=== PATIENT | male | born 1955 | race Caucasian/White ===

== ENCOUNTER → 2018-01-02 14:05 | Outpatient (CLI) | payer BC, SELFPAY ==
[2018-01-02 16:29] LABS: Anion Gap 8 (5-15); BUN 12 mg/dL (7-18); BUN/Creat Ratio 8.7 RATIO (10-20); Calcium,Total 8.9 mg/dL (8.5-10.1); Chloride 104 mmol/L (98-107); Creatinine, Serum 1.38 mg/dL (0.70-1.30); EST Glomerular Filtration Rate 55 mL/min (>60); Est Glom Filt Rate - Afr Amer 67 mL/min (>60); Glucose 90 mg/dL (74-106); Potassium 4.1 mmol/L (3.5-5.1); Sodium Level 140 mmol/L (136-145)
== END ==
PROVIDERS: Family Provider Family Medicine; PCP Family Medicine; Visit Provider Family Medicine
DX: E87.6 Hypokalemia (principal)
CPT/HCPCS: 36415; 80048

== ENCOUNTER 2018-02-27 10:00 | Outpatient (RCR) | payer BC, SELFPAY ==
--- NOTE | 2018-02-01 11:02 | HP.PTEVAL ---
Patient's Visit Information MONSE WILSON is a 62 year old M referred to Physical Therapy by Maribell Brown NP.KOPSIT with a diagnosis of lumbar microdiscectomy left L5-S1. Date of Evaluation: 02/01/18 Physical Therapist: Mellisa Hall - Visit Plan Frequency: 2x /Week Duration: 4 Weeks Plan: Begin Lumbar Isometrics- do not perform ROM exercises- wean from lumbar brace as tolerated. Postural correction/body mechanics. LE ROM/stretching/strengthening- HEP. Balance left>right - Subjective Subjective: Has had back pain for years- had a lumbar microdiscectomy by Dr. Justen Morrow 01/16/18- went home after surgery. Fully I with all Adl's. wants to get back to being able to do all the things he was able to do prior to back pain. Had a back brace but has started to wean himself out- only really wearing when up and moving but did not wear it today. Saw 01/26- they were happy with progress. Patient reports still having some low back pain and left radiating symptoms to the foot. Better since surgery- feels like hes healing. Is driving. Worst: 01/21 Agg: anything to long- mostly standing or sitting to long. Eases: ice, heat feels better but doesn't do often. Best: 11/23. Sleep: does wake him up from time to time- side sleeper (both sides). Does sleep with a pillow between knees. Tingling in the outside of the left foot. No loss or change in bowel or bladder. Work: retired. PMhx: right shoulder RTC (2007) Meds: theraflex (Coumadin). Leaves March 02 for a trip to [facility]. - Objective Posture: FH, RS, Increased kyphosis- no brace worn today. Gait: no deviation noted. ROM: not tested secondary to restrictions. Incision: healing well- no s/s of infection. Sensation/Reflexes: intact. Strength: Right: Ankle: 5/5, Knee: 4+/5, Hip: 4+/5 Core: fair minus left: ankle: 4/5, Knee: 4/5, hip: 4/5. Flex: HS: left- severe, Gastroc: moderate. Balance: SLS: left-3 seconds right: 20 seconds. HR/TR: WNL - Goals Goal 1:: Patient will be I with HEP and progression Goal Time Frame: 4-6 Weeks Goal 2:: Patient will maintain proper posture t/o tx session to demo increased core s/s. Goal Time Frame: 4-6 Weeks Goal 3:: Patient will demo 4+/5 strength in left Le Goal Time Frame: 4-6 Weeks - Rehabilitation Potential Physical Therapy Diagnosis: Patient presents with hypomobility- he has decreased strength and muscular endurance s/p lumbar microdiscectomy Rehabilitation Potential: Good - Anticipated Interventions Patient/Client Instruction: Educate patient on: Benefits of Fitness Program For the Purpose of:: To increase tolerance to activity/condition/position Therapeutic Exercise to Include: Strength training, Endurance training, Agility training, Body mechanics, Postural training, Flexibilty training, Gait and locomotor training, Dynamic Lumbar Stabilization For the Purpose of:: To improve muscle performance and motor function TENS: Yes Cryotherapy (ice pack, ice massage): Yes Thermo therapy (hot pack): Yes For the Purpose of:: To decrease pain Thank you for the opportunity to evaluate your patient. For Medicare and Medicare HMO plans, please review the plan of care and approve it. It will need to be FAXED BACK to us at [phone] for Medicare purposes. Please let me know if there are questions or concerns regarding this plan of care. Physician Signature: Date:
--- NOTE | 2018-02-27 10:33 | HP.PTREVAL ---
Maribell Brown, , It has been my pleasure to treat MONSE WILSON over the last 8 visits for lumbar microdiscectomy left L5-S1. Please see the progress note below for an update on the physical therapy plan of care! Subjective: Patient reports that he is still feeling pretty good- usually he is okay but sometimes has a twinge but does not last to long. Can reposition and it feels okay. Has been doing exercises and walking about a mile loop 3-4 times. Leaves - feels his back is feeling ready to go. The leg pain is almost all resolved but does feel the left is a little weeker than the right. He feels that he is 99% of his expection level. Objective/Function: Posture: good throughout. Gait: no deviation noted. ROM: WFL within limitations. Strength:right: 5/5, Left: Ankle/knee: 5/5. Hip: 4+/5 throughout Core: fair plus Plan Plan: Hlld 4 weeks- patient to go to [employer] on a [employer] for 4 weeks- will wear brace and continue HEP Goals Goal 1:: Patient will be I with HEP and progression Goal Time Frame: 4-6 Weeks Goal Progress: Goal Met Goal 2:: Patient will maintain proper posture t/o tx session to demo increased core s/s. Goal Time Frame: 4-6 Weeks Goal Progress: Goal Met Goal 3:: Patient will demo 4+/5 strength in left Le Goal Time Frame: 4-6 Weeks Goal Progress: Goal Met Anticipated Interventions Patient/Client Instruction: Educate patient on: Benefits of Fitness Program For the Purpose of:: To increase tolerance to activity/condition/position Therapeutic Exercise to Include: Strength training, Endurance training, Agility training, Body mechanics, Postural training, Flexibilty training, Gait and locomotor training, Dynamic Lumbar Stabilization For the Purpose of:: To improve muscle performance and motor function TENS: Yes Cryotherapy (ice pack, ice massage): Yes Thermo therapy (hot pack): Yes For the Purpose of:: To decrease pain Please do not hesitate to contact me at [phone] by phone or if you have questions or concerns regarding this new plan of care! Sincerely, Mellisa Hall
--- NOTE | 2018-05-03 08:51 | HP.PT.NRP ---
HP - Discharge Summary (1) - Patient Information MONSE WILSON was seen in my office for initial evaluation on 02/01/18. The following Plan of Care was established for this patient: Initial Frequency: 2x /Week Initial Duration: 4 Weeks - Anticipated Interventions Patient/Client Instruction: Educate patient on: Benefits of Fitness Program For the Purpose of:: To increase tolerance to activity/condition/position Therapeutic Exercise to Include: Strength training, Endurance training, Agility training, Body mechanics, Postural training, Flexibilty training, Gait and locomotor training, Dynamic Lumbar Stabilization For the Purpose of:: To improve muscle performance and motor function TENS: Yes Cryotherapy (ice pack, ice massage): Yes Thermo therapy (hot pack): Yes For the Purpose of:: To decrease pain This patient was last seen in our office . Pertinent comments regarding their Physical therapy will appear below: Patient has not attended physical therapy in over 30 days and is appropriate for d/c- return to MD as needed. At this point I will be discontinuing this patient from physical therapy. I would be happy to see this patient again in the future if found appropriate by the physician. Thank you! Mellisa Hall
== END 2018-02-27 19:00 | disposition home or self-care (01) ==
LOC: PT 10:00
PROVIDERS: Family Provider Family Medicine; PCP Family Medicine; Visit Provider Nurse Practitioner Acute Care
DX: M51.16 Intervertebral disc disorders with radiculopathy, lumbar region (principal)
CPT/HCPCS: 97110; 97162; 97530

== ENCOUNTER → 2020-11-04 17:49 | Outpatient (CLI) | payer MEDICARE, SELFPAY ==
[2020-10-21 15:01] VITALS: BMI 26.6
[2020-11-03 15:26] LABS: Creatinine, Serum 1.12 mg/dL (0.70-1.30); EST Glomerular Filtration Rate 70 mL/min (>60); Est Glom Filt Rate - Afr Amer 84 mL/min (>60)
--- NOTE | 2020-11-04 18:15 | MRI_ITS ---
STUDY: MRI BRAIN WITH AND WITHOUT CONTRAST REASON FOR EXAM: Male, 65 years old. Post concussion H/A X 11 weeks TECHNIQUE: Standardized multiplanar fat and water weighted pulse sequences were obtained. 15ml Dotarem via IV was administered for the contrast portion of the examination. COMPARISON: None. FINDINGS: Normal size of the ventricles and extra-axial spaces for the patient''s age. There are a limited number of small white matter hyperintensities, distributed throughout the deep white matter tracts of the cerebral hemispheres, consistent with mild chronic white matter ischemic changes. Normal bilateral basal ganglia. Normal thalami. There is no extra-axial fluid accumulation. Normal flow voids within the major intracranial circulation suggesting patency by spin echo criteria. Normal venous enhancement. There is no enhancing intra-axial or extra-axial abnormality. Normal sella turcica, pituitary gland, infundibular stalk, optic chiasm and hypothalamus. Normal tectal plate and pineal gland. Normal midbrain, cathy and medulla. Normal cerebellum. Normal basal cisterns. Normal bilateral temporal bones. Normal bilateral internal auditory canals. No demonstrated orbital abnormality, within the constraints of a routine brain study. Normal visualized paranasal sinuses. Normal calvarium and skull base. Normal visualized soft tissue structures. Normal visualized upper cervical spine. MRI/Brain W/WO Contrast IMPRESSION: Involutional changes of the brain, as described above. There is no evidence of intracranial hemorrhage. Electronically Signed: Emerald Dickens, at 3:17 EST Tel , Service support ,
== END ==
PROVIDERS: PCP Family Medicine; Referring Provider Family Medicine; Visit Provider Family Medicine
DX: G44.309 Post-traumatic headache, unspecified, not intractable (principal); C44.42 Squamous cell carcinoma of skin of scalp and neck
CPT/HCPCS: 36415; 70553; 82565; A9575

== ENCOUNTER 2022-09-15 15:25 | Observation (INO) | payer MEDICARE, SELFPAY ==
--- NOTE | 2022-09-09 08:43 | EKG12_ITS ---
Test Reason : PRE OP Blood Pressure : / mmHG Vent. Rate : 075 BPM Atrial Rate : 075 BPM P-R Int : 140 ms QRS Dur : 134 ms QT Int : 408 ms P-R-T Axes : 068 -80 034 degrees QTc Int : 455 ms Normal sinus rhythm Right bundle branch block Left anterior fascicular block Bifascicular block Abnormal ECG Confirmed by ROGELIO QUEEN, JIMMIE ([id number]), material expeditor VALERIA LARES ([id number]) on 09/10/2022 2:19:34 P M Referred By: Moiz Benavides Confirmed By:JOSE R MERCADO MD
[2022-09-09 09:14] LABS: Hematocrit 46.8 % (40-54); Hemoglobin 15.8 g/dL (13.0-16.5); Mean Corp Hgb Conc 33.8 g/dL (32-36); Mean Corpuscular Hgb 30.9 pg (27.0-32.0); Mean Corpuscular Volume 91.6 fL (80-94); Mean Platelet Vol. 10.2 fl (6.2-12.0); Platelet Count 216 K/mm3 (150-450); RBC Distribution Width CV 13.5 % (11.6-14.6); RBC Distribution Width SD 45.9 fl (35.1-43.9); Red Blood Count 5.11 M/mm3 (4.6-6.2); White Blood Count 6.3 K/mm3 (4.4-11.0)
[2022-09-09 09:35] LABS: Anion Gap 4 (5-15); BUN 15 mg/dL (7-18); BUN/Creat Ratio 12.3 RATIO (10-20); Calcium,Total 8.8 mg/dL (8.5-10.1); Chloride 108 mmol/L (98-107); Creatinine, Serum 1.22 mg/dL (0.70-1.30); EST Glomerular Filtration Rate 63 mL/min (>60); Est Glom Filt Rate - Afr Amer 76 mL/min (>60); Glucose 101 mg/dL (74-106); Sodium Level 140 mmol/L (136-145)
[2022-09-15] VITALS (9 sets, daily range): BP systolic 117–133; BP diastolic 63–88; PULSE 14–77; RESP 12–16; TEMP 36.1–36.7; O2SAT 96–100; BMI 26.5
[2022-09-15] MEDS: Lactated Ringers 1,000 ML 15 ML IV (12:21)
--- NOTE | 2022-09-15 14:10 | PROS_PTH ---
PATIENT: MONSE WILSON LOC: [facility] U#:[id number] AGE/SX: 67/M ROOM: ND316 RE09/15/[address]: Dr. Moiz Benavides MD : 1955 BED: 1 DIS: 09/16/2022 SPEC #: [id number] RECD: 09/15/22 16:10 STATUS: GEO VALIENTE #: [id number] ZION: 09/15/22 14:[address]: Moiz Benavides DEPT: SURGICAL PATHOLOGY RECD BY: Carole Ruiz ENTERED: 09/16/22 09:01 SP TYPE: TURP OTHR DR: Dr. Justen Gonzales MD Tissues: Prostate, NOS Procedures: Surgery Specimen Level IV HEADER OPERATION: Cysto, TUR prostate, Olympus PRE-OP DIAGNOSIS: Obstructing, moderate hyperplasia TISSUE SUBMITTED: Prostate chips MICROSCOPIC DIAGNOSIS Prostate, transurethral resection: Benign nodular hyperplasia, glandular and stromal types. Chronic inflammation. AM:yennifer 09/17/2022 MICROSCOPIC DESCRIPTION Slides are reviewed. GROSS DESCRIPTION Received is one container labeled with the patient's name and designated prostate chips. The specimen consists of multiple irregular fragments of pink-bañuelos, rubbery, soft tissue that in aggregate weigh 12.1 gm and measure in aggregate 6.5 x 6.5 x 0.8 cm. Juvenile [employer] Officer portions are submitted in ten cassettes. / AM:yennifer 09/16/2022 TC:5 CPT: 94720
[2022-09-15] MEDS: Cefazolin 2 GM in 0.9% Normal Saline 100 ML IV (14:21)
--- NOTE | 2022-09-15 15:27 | HP.PCM_ITS ---
HPI - General HPI Narrative MONSE WILSON, is a 67 M who presents for transurethral resection of the prostate for BPH obstruction and incomplete emptying PFSH Medical History (Updated 09/08/22 @ 14:39 by Farzaneh Trejo) Abnormal EKG Alcohol use Back pain Cardiology follow-up encounter DDD (degenerative disc disease), lumbosacral Dietary restriction Hematoma History of basal cell carcinoma History of irregular heartbeat Loss of hearing Non-smoker Prostate disease Wears glasses Wears hearing aid Home Medications finasteride 5 mg tablet 5 mg PO DAILY 09/08/22 [History Last Taken Unknown] tamsulosin 0.4 mg capsule (Flomax) 0.4 mg PO BID 09/08/22 [History Last Taken Unknown] Allergy/AdvReac Type Severity Reaction Status Date / Time No Known Allergies Allergy Verified 09/15/22 12:10 Family History Father , age 62 Heart disease Mother Atrial fibrillation Surgical History (Updated 09/08/22 @ 14:38 by Farzaneh Trejo) History of microdiscectomy History of repair of right rotator cuff Hx of oral surgery Social History Smoking Status: Never smoker alcohol intake: current alcohol intake frequency: a few times a week substance use type: does not use caffeine: Yes Type: coffee Number of servings: 5 Vital Signs Vital Signs Vital Signs: 09/15/22 12:14 09/15/22 12:14 Temperature 96.9 F L Temperature Source Temporal Pulse Rate 70 Respiratory Rate 16 Respiratory Pattern Normal Blood Pressure 131/80 H Blood Pressure Mean 97 Blood Pressure Source Monitor Blood Pressure Position Semi-Fowlers Blood Pressure Location Left Arm Pulse Ox 98 Oxygen Delivery Method Room Air Weight Weight: 74.5 kg Body Mass Index (BMI) 26.5 Results Lab / Micro Data Result Diagrams: 09/09/22 08:54 09/09/22 08:54
--- NOTE | 2022-09-15 15:29 | DCINST_ITS ---
Discharge Instructions Diet Discharge Diet: No restrictions, Light diet - advance as tolerated and Soft diet Activity Discharge Activity: May Shower Follow Up Care Please Follow Up With: Moiz Benavides MD Test Results: Test results from this visit will be discussed in further detail at your follow- up appointment, if applicable. Discharge Plan Admission Primary Reason for Your Visit: turp Attending Provider: Moiz Benavides Primary Care Provider: Justen Gonazles Instructions Patient Instructions: TUR Home Recovery Discharge Orders/Prescriptions Prescriptions: Continued tamsulosin [Flomax] 0.4 mg Capsule 0.4 mg PO BID finasteride 5 mg Tablet 5 mg PO DAILY Referrals / Follow Up: Moiz Benavides MD [Med Staff - Active Staff] - Justen Gonzales MD [Primary Care Provider] - Disposition Disposition (needs filled in before D/C Order can be placed): Home, Self Care
--- NOTE | 2022-09-15 15:29 | OP.PCM_ITS ---
Report of Operation Date of Procedure: 09/15/22 Pre-Operative Diagnosis: BPH with obstruction Post-Operative Diagnosis: Same Surgery/Procedure Performed:: Transurethral section of prostate Description of Surgical Findings:: In the preoperative setting I discussed with the patient how the surgery would be done with expect afterwards. We discussed how a prostate resection is done and we discussed the risk of the surgery including, bleeding, infection, retrograde ejaculation, changes with ejaculation or intercourse,. We discussed the possibility that the resection of the prostate may not alleviate his urinary symptoms. We discussed the small risk of developing scar tissue along the urethral channel and strictures. We also discussed the chance of the prostate could grow back and he may need further surgery or treatment in the future for prostate problems. Patient was taken back to the operating room, timeout procedure was performed, he was identified and marked and placed on the operating room table. He underwent general anesthesia. He was placed in dorsolithotomy position. Penis and testicles were prepped and draped in usual sterile fashion. Went into the bladder using the visual obturator with a resectoscope. Once inside the bladder identified the right and left ureteral orifice. I then identified the prostate and the anatomy of the prostate. He had a small but obstructive prostate and a fairly distended stretched out bladder. I marked out the area of the sphincter and the verumontanum was identified. I then proceeded with the prostate resection first resected the median lobe. And then resected the right lobe of the prostate. Then to resect the left lobe of the prostate. I then resected the apical tissue of the prostate. This was a complete resection of all obstructive tissue to improve voiding and relieve obstruction. I then made sure that there was no injury to the sphincter or the verumontanum was still intact. At the end of the resection all the chips were Ellik out of the bladder. I then identified the left and right ureteral orifice and these were confirmed to be in good position and effluxing and not injured. The resectoscope was removed, a 22 Albanian catheter was placed into the bladder on continuous irrigation. And the urine was fairly light pink color and draining normally. He was taken back to the PACU in good condition. Surgeon: Moiz Benavides Type of Anesthesia: General Drains: 3 way hair Admit VTE Documentation VTE Present on Admission: No VTE Mechan Device Prophylaxis: SCD's VTE Pharm Prophylaxis ordered?: No
--- NOTE | 2022-09-15 16:52 | SUR.PHASEI ---
CALLED REPORT TO [facility]. WAS NOTIFIED THAT ROOM IS NOT CLEAN, WILL BE ABOUT 45MIN. WILL KEEP PATIENT IN PACU UNTIL ROOM IS CLEAN.
[2022-09-15] MEDS: 0.9% Normal Saline 1,000 ML 125 ML IV (20:36)
[2022-09-15] MEDS: Tamsulosin HCl 0.4 MG Capsule PO (21:49)
[2022-09-15] MEDS: Docusate Sodium 100 MG Capsule 200 MG PO (21:49)
[2022-09-15] MEDS: Ciprofloxacin 400 MG/200 ML BAG 200 MG IV (21:49)
[2022-09-16 00:23] VITALS: BP 124/70; PULSE 77; RESP 14; TEMP 36.7; O2SAT 98
[2022-09-16 02:00] VITALS: BP 103/48; PULSE 78; RESP 14; TEMP 37.1; O2SAT 95
[2022-09-16 06:00] VITALS: BP 111/57; PULSE 66; RESP 14; TEMP 37.1; O2SAT 97
[2022-09-16] MEDS: 0.9% Normal Saline 1,000 ML 125 ML IV (06:06)
--- NOTE | 2022-09-16 07:43 | PCM.PN.GU ---
Subjective Subjective Doing well status post transurethral section of the prostate, DC Josue home after he urinates Objective Data Objective Data Vital Signs: Vital Signs Temp Pulse Resp BP Pulse Ox O2 Del Method 98.8 F 66 14 111/57 L 97 Room Air 09/16/22 06:00 09/16/22 06:00 09/16/22 06:00 09/16/22 06:00 09/16/22 06:00 09/16/22 06:00 Oxygen Delivery Method Room Air Weight: 74.5 kg Body Mass Index (BMI) 26.5 Intake & Output: Intake and Output for Last 24 Hours 09/14/22 09/15/22 09/16/22 23:59 23:59 23:59 Intake Total 1310 / 1310 1000 / 1000 Output Total 2300 / 2300 2375 / 2375 Balance -990 / -990 -1375 / -1375 Lab / Micro Data Result Diagrams: 09/09/22 08:54 09/09/22 08:54
[2022-09-16] MEDS: Docusate Sodium 100 MG Capsule 200 MG PO (09:47)
[2022-09-16] MEDS: Finasteride 5 MG Tablet PO (09:47)
[2022-09-16] MEDS: Tamsulosin HCl 0.4 MG Capsule PO (09:47)
[2022-09-16] MEDS: Ciprofloxacin 400 MG/200 ML BAG 200 MG IV (09:49)
[2022-09-16 10:46] VITALS: BP 111/57; PULSE 66; RESP 14; TEMP 37.1; O2SAT 97
== END 2022-09-16 13:24 | disposition home or self-care (01) ==
LOC: SDC 15:46 → MS3 15:46
PROVIDERS: Anesthesiology; Admitting Provider Urology; PCP Family Medicine; Referring Provider Urology; Visit Provider Urology
PROC: (CPT 52601; principal; 2022-09-15 14:00)
DX: N40.1 Benign prostatic hyperplasia with lower urinary tract symptoms (principal); R39.14 Feeling of incomplete bladder emptying; R39.11 Hesitancy of micturition; R94.31 Abnormal electrocardiogram [ECG] [EKG]; R03.0 Elevated blood-pressure reading, without diagnosis of hypertension; Z85.828 Personal history of other malignant neoplasm of skin; I45.2 Bifascicular block; N13.8 Other obstructive and reflux uropathy
CPT/HCPCS: 52601; 00914; 36415; 80048; 85027; 88305; 93005; 96361; 96365; 96366; 99218; J7030; J7120; G0378; J0744; J2405

== ENCOUNTER → 2022-10-19 | Outpatient (CLI) | payer MEDICARE, SELFPAY ==
[2022-10-19 16:37] LABS: AST(SGOT) 17 U/L (15-37); Alanine Aminotransfer ALT/SGPT 29 U/L (16-61); Albumin, Serum 3.4 g/dL (3.2-5.0); Alkaline Phosphatase 48 U/L (45-117); Bilirubin, Direct 0.12 mg/dL (0.00-0.30); Cholesterol 194 mg/dL (200); Globulin 3.7 g/dL (2.2-4.2); High Density Lipoprotein 62 mg/dL; Protein, Total 7.1 g/dL (6.4-8.2); Triglycerides 130 mg/dL; Very Low Density Lipoprotein 26 mg/dL (5-40)
== END | disposition home or self-care (01) ==
LOC: LAB 15:09
PROVIDERS: PCP Family Medicine; Visit Provider Internal Medicine Cardiovascular Disease
DX: R94.31 Abnormal electrocardiogram [ECG] [EKG] (principal); R03.0 Elevated blood-pressure reading, without diagnosis of hypertension; I45.10 Unspecified right bundle-branch block; E03.0 Congenital hypothyroidism with diffuse goiter
CPT/HCPCS: 36415; 80061; 80076

== ENCOUNTER → 2022-10-27 | Outpatient (CLI) | payer MEDICARE, SELFPAY ==
--- NOTE | 2022-10-27 09:40 | ECHOD_ITS ---
Reason For Study: ARRYTHMIA Procedure This was a 2D Doppler, Color Flow transthoracic echocardiogram. Technically difficult, patient scanned in supine position. Exam performed in department. Left Ventricle Normal LV size. Left ventricular systolic function is normal. The estimated ejection fraction is 60 %. Stage 1 diastolic dysfunction. No regional wall motion abnormalities noted. Right Ventricle Normal RV size. Normal systolic function. Atria Normal left atrium. Normal right atrium. Mitral Valve Normal mitral valve. Tricuspid Valve Normal tricuspid valve. Aortic Valve Normal aortic valve. Pulmonic Valve Normal pulmonic valve. Great Vessels Normal aortic root. The pulmonary artery is normal size. Normal inferior vena cava. Pericardium/Pleural No pericardial effusion. MMode/2D Measurements & Calculations LVIDd: 4.2 cm IVSd: 0.79 cm Ao root diam: 3.2 cm LVIDs: 3.1 cm LVPWd: 0.80 cm FS: 26.6 % LAV(MOD-bp): 27.2 ml LVAd ap4: 20.1 cm2 SV(MOD-sp4): 28.2 ml LAV(MOD-bp) Indexed: 14.6 ml/m2 LVLd ap4: 7.2 cm LAV(MOD-sp2): 24.1 ml EDV(MOD-sp4): 47.8 ml LAV(MOD-sp4): 26.9 ml EDV(sp4-el): 47.5 ml LVAs ap4: 11.6 cm2 LVLs ap4: 5.8 cm ESV(MOD-sp4): 19.6 ml ESV(sp4-el): 19.5 ml EF(MOD-sp4): 59.0 % EF(sp4-el): 58.9 % SV(sp4-el): 28.0 ml LA A4 area: 13.5 cm2 LA dimension(2D): 3.3 cm RA A4 area: 12.0 cm2 Time Measurements MV dec time: 0.20 sec Doppler Measurements & Calculations MV E max alfonso: 41.8 cm/sec Lat Peak E' Alfonso: 8.4 cm/sec Med Peak E' Alfonso: 6.5 cm/sec MV A max alfonso: 70.1 cm/sec E/E' lat: 5.0 E/E' med: 6.4 MV E/A: 0.60 MV V2 max: 55.0 cm/sec Ao V2 max: 99.7 cm/sec MV max P.2 mmHg MV dec slope: 215.8 cm/sec2 Ao max P.0 mmHg MV V2 mean: 28.8 cm/sec Ao V2 mean: 68.7 cm/sec MV mean P.40 mmHg Ao mean P.2 mmHg MV V2 VTI: 15.1 cm Ao V2 VTI: 21.2 cm AV (velocity ratio): 0.81 LV V1 max: 87.9 cm/sec PA V2 max: 88.1 cm/sec PI end-d alfonso: 87.5 cm/sec LV V1 max P.1 mmHg PA V2 mean: 70.0 cm/sec LV V1 mean P.7 mmHg LV V1 mean: 60.6 cm/sec LV V1 VTI: 17.2 cm ECHO/Echo Complete Interpretation Summary Normal LV size. Left ventricular systolic function is normal. The estimated ejection fraction is 60 %. Stage 1 diastolic dysfunction. Structurally normal valves. Ordering Physician: Omer Barker Referring Physician: Omer Barker Performed By: Gisselle Reed RCS
== END | disposition home or self-care (01) ==
LOC: CVS 09:38
PROVIDERS: PCP Family Medicine; Referring Provider Internal Medicine Cardiovascular Disease; Visit Provider Internal Medicine Cardiovascular Disease
DX: R94.31 Abnormal electrocardiogram [ECG] [EKG] (principal)
CPT/HCPCS: 93306

== ENCOUNTER → 2023-02-28 | Outpatient (CLI) | payer MEDICARE, SELFPAY ==
[2023-02-28 15:06] LABS: PSA,Total- Diagnostic 3.72 ng/mL (0.0-4.0)
== END | disposition home or self-care (01) ==
LOC: LAB 14:08
PROVIDERS: Referring Provider Urology; Visit Provider Urology
DX: N40.1 Benign prostatic hyperplasia with lower urinary tract symptoms (principal)
CPT/HCPCS: 36415; 84153

== ENCOUNTER → 2023-06-06 | Outpatient (CLI) | payer MEDICARE, SELFPAY ==
--- NOTE | 2023-06-06 09:10 | RAD_ITS ---
STUDY: X-RAY - ESOPHAGUS (BARIUM SWALLOW) WITH FLUOROSCOPY REASON FOR EXAM: Male, 67 years old. DYSPHAGIA for solids. History of prior esophageal dilatation. TECHNIQUE: 12 view(s) of the esophagus were obtained following swallowing of barium. FLUOROSCOPY TIME (if supplied): (30 seconds) minutes/seconds. 5.84 mGy. COMPARISON: None. FINDINGS: There is no demonstrated esophageal foreign body. There is no demonstrated stricture or mucosal abnormality. Normal gastroesophageal junction, without a demonstrated hiatal hernia. The patient ingested a 12 mm tablet of barium without any difficulty. Normal visualized aortic arch and descending thoracic aorta. Normal visualized pulmonary parenchyma. Normal visualized osseous structures of the thorax. RAD/Esophagus Dual Contrast IMPRESSION: Normal plain film x-ray examination (barium swallow) of the esophagus. Electronically Signed: Rickey Sanchez MD at 9:48 EDT ,
== END | disposition home or self-care (01) ==
PROVIDERS: PCP Nurse Practitioner Family; Referring Provider Internal Medicine Gastroenterology; Visit Provider Internal Medicine Gastroenterology
DX: R13.10 Dysphagia, unspecified (principal)
CPT/HCPCS: 74221

== ENCOUNTER → 2024-02-22 | Outpatient (CLI) | payer MEDICARE, SELFPAY ==
[2024-02-22 15:08] LABS: Absolute Lymphocyte Count 1.67 X10^3/uL (0.83-4.51); Absolute Neutrophil Count 3.7 X10^3/uL (2.0-7.7); Basophil# 0.04 X10^3/uL; Basophil% 0.6 % (0-1); Eosinophil# 0.16 X10^3/uL; Eosinophils% 2.5 % (0-5); Hematocrit 46.4 % (40-54); Hemoglobin 14.8 g/dL (13.0-16.5); Lymphocyte # 1.67 X10^3/ul (0.83-4.51); Lymphocyte % 26.5 % (19-41); Mean Corp Hgb Conc 31.9 g/dL (32-36); Mean Corpuscular Hgb 29.1 pg (27.0-32.0); Mean Corpuscular Volume 91.2 fL (80-94); Mean Platelet Vol. 10.8 fl (6.2-12.0); Monocyte# 0.71 X10^3/uL; Monocyte% 11.3 % (0-10); NRBC Flagged by Analyzer 0 % (0-5); Neutrophil # 3.69 X10^3/uL (2.7-7.7); Neutrophil % 58.6 % (47-70); Platelet Count 239 K/mm3 (150-450); RBC Distribution Width CV 12.9 % (11.6-14.6); RBC Distribution Width SD 42.9 fl (35.1-43.9); Red Blood Count 5.09 M/mm3 (4.6-6.2); White Blood Count 6.3 K/mm3 (4.4-11.0)
[2024-02-22 15:47] LABS: ALB/GLOB Ratio 1.1 RATIO (0.9-2.4); AST(SGOT) 20 U/L (15-37); Alanine Aminotransfer ALT/SGPT 25 U/L (16-61); Albumin, Serum 3.7 g/dL (3.2-5.0); Alkaline Phosphatase 46 U/L (45-117); Anion Gap 3 (5-15); BUN 14 mg/dL (7-18); BUN/Creat Ratio 11.9 RATIO (10-20); Calcium,Total 8.6 mg/dL (8.5-10.1); Chloride 108 mmol/L (98-107); Creatinine, Serum 1.18 mg/dL (0.70-1.30); EST Glomerular Filtration Rate 65 mL/min (>60); Est Glom Filt Rate - Afr Amer 79 mL/min (>60); Ferritin 106 ng/mL (26-388); Globulin 3.5 g/dL (2.2-4.2); Glucose 108 mg/dL (74-106); Iron 80 ug/dL (65-175); Potassium 3.9 mmol/L (3.5-5.1); Protein, Total 7.2 g/dL (6.4-8.2); Sodium Level 137 mmol/L (136-145); T4 Free Direct 1.08 ng/dL (0.76-1.46); Thyroid Stim Hormone (TSH) 1.12 uIU/mL (0.358-3.74)
[2024-02-22 16:14] LABS: Hemoglobin A1c 5.3 % (3.8-5.6)
== END | disposition home or self-care (01) ==
LOC: BFHLAB 13:15
PROVIDERS: PCP Nurse Practitioner Family; Visit Provider Nurse Practitioner Family
DX: R42 Dizziness and giddiness (principal); D64.9 Anemia, unspecified; R73.01 Impaired fasting glucose
CPT/HCPCS: 36415; 80053; 82728; 83036; 83540; 84439; 84443; 85025

== ENCOUNTER → 2024-02-28 | Outpatient (CLI) | payer MEDICARE, SELFPAY | END | disposition home or self-care (01) | LOC: LAB 09:36 | PROVIDERS: PCP Nurse Practitioner Family; Visit Provider Nurse Practitioner | DX: Z12.5 Encounter for screening for malignant neoplasm of prostate (principal) | CPT/HCPCS: 36415; 84153; G0103 ==

== ENCOUNTER → 2024-10-09 | Outpatient (CLI) | payer MEDICARE, SELFPAY ==
--- NOTE | 2024-10-09 14:08 | NEURO_ITS ---
NCS and/or EMG Patient Report Ordering Doctor: Roxie Alba DATE OF SERVICE: 10/09/24 Clinical Summary: 69 year old male patient with symptoms of numbness and tingling in the feet. Symptoms are felt mostly in the left foot regardless of whether he is lying, sitting, or standing. He has a history of back surgery. Nerve Conduction Studies Summary: Nerve conductions were performed in the bilateral lower extremities. The left peroneal-EDB CMAP was absent. The right peroneal-EDB CMAP amplitude was reduced. Needle Examination Summary: Needle examination of select muscles of the bilateral lower extremities demonstrated a higher proportion of motor unit action potentials with reduced recruitment, increased amplitude, increased duration, and polyphasia in the left tensor fascia maria del rosario, bilateral tibialis anterior, and bilateral peroneus longus m uscles. Impression: There is electrodiagnostic evidence of a chronic, left L5 radiculopathy. This electrodiagnostic study is also suggestive of a chronic, right L5 radicul opathy. There is no electrodiagnostic evidence of a large-fiber peripheral neuropathy. Multi Select Codes Neurology Neurology Interp Codes: 23760-60 Musc test done w/n test comp (interp) (2) and 17290-34 Nrv cndj test 9-10 studies (interp)
== END | disposition home or self-care (01) ==
LOC: PSN 12:03
PROVIDERS: PCP Nurse Practitioner Family; Referring Provider Podiatrist; Visit Provider Podiatrist
DX: G64 Other disorders of peripheral nervous system (principal)
CPT/HCPCS: 95886; 95911

== ENCOUNTER 2024-11-12 13:00 | Outpatient (RCR) | payer MEDICARE, SELFPAY ==
--- NOTE | 2024-10-26 14:29 | HP.PTEVAL ---
Patient's Visit Information Visit Information Visit Information: MONSE WILSON is a 69 year old M referred to Physical Therapy by Dr. Wagner Barrera MD with a diagnosis of LUMBAR DISC HERNIATION WITH RADICULOPATHY. Date of Evaluation: 10/26/24 Physical Therapist: Dagoberto Banks, PT, Cert MDT, OCS Visit Plan Frequency: 2x /Week Duration: 4 Weeks Plan: PT INTERVENTIONS HUNTER DLS ,POSTURAL EX'S , LE FLEXABILITY AND MODALITIES Subjective Subjective: This 69 y/o male presents to physical therapy with lumbar radiculopathy . Patient developed increase symptoms left foot ankle Jul 2024 . 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 Patient then had EMG showed electrodiagnostic study is also suggestive of a chronic, right L5 radiculopathy. Imaging showed DDD. Patient patient seen Orthopedic back surgeon. Recommended PT pain medication. Patient initially had lumbar discectomy 2015. No pain management. Patient has lumbar symmetrical pain and tingling plantar aspect of feet. Aggravating factors walking ,standing ,lifting . Alleviating rest. Coughing/sneezing -. Bowel/bladder -. C/O paresthesia/tingling feet. Patient pain affects sleeping. Patient condition affects QOL and function. Patient goals to have decrease pain, SOCIAL: VOCATION: RETIRED Pain Bilateral Back: Pain Intensity (Out of 10): 6 Pain Intensity Range: 10 Objective Objective: POSTURE: NUERO: GAIT: PALAPTION: Special Tests L/S Slump test left side: Negative L/S Slump test right side: Negative L/S Left Straight Leg Raise: Negative L/S Right Straight Leg Raise: Negative Lumbar Standing: Flexion - Mechanical Response: No effect Lumbar Standing: Flexion - Symptoms During Testing: No effect Lumbar Standing: Flexion - Symptoms After Testing: No effect Lumbar Standing: Extension - Mechanical Response: No effect Lumbar Standing: Extension - Symptoms During Testing: No effect Lumbar Standing: Extension - Symptoms After Testing: No effect Lumbar Standing: Right Side Glides - Mechanical Response: No effect Lumbar Standing: Right Side [place] - Symptoms During Testing: No effect Lumbar Standing: Right Side [place] - Symptoms After Testing: No effect Lumbar Standing: Left Side [place] - Mechanical Response: No effect Lumbar Standing: Left Side [place] - Symptoms During Testing: No effect Lumbar Standing: Left Side [place] - Symptoms After Testing: No effect Lumbar Lying: Flexion - Mechanical Response: No effect Lumbar Lying: Flexion - Symptoms During Testing: No effect Lumbar Lying: Flexion - Symptoms After Testing: No effect Lumbar Lying: Extension - Mechanical Response: No effect Lumbar Lying: Extension - Symptoms During Testing: No effect Lumbar Lying: Extension - Symptoms After Testing: No effect Balance/Special Test Scores Oswestry Low Back Score: 18 Goals Goal 1:: Patient to be I with HEP for back Goal Time Frame: 4-6 Weeks Goal 2:: Patient to improve back oswestry score by 5 points to improve QOL Goal Time Frame: 4-6 Weeks Goal 3:: Patient to demonstrate 50% improvement with less pain and improved function Goal Time Frame: 4-6 Weeks Goal 4:: Patient to improve lumbar ROM for function of recovery Goal Time Frame: 4-6 Weeks Goal 5:: Patient has less pain with walking and standing with improvement of ADL's min limiations Goal Time Frame: 4-6 Weeks Rehabilitation Potential Physical Therapy Diagnosis: This patient has lumbar radiculopathy with h/o lumbar discectomy left 2015 and pain return to Sept with pain worse with positioning walking standing pain better with movement today with pain center of back and no foot symptoms thus benefit from skilled PT Rehabilitation Potential: Good Anticipated Interventions Patient/Client Instruction: Educate patient on: Condition and Plan of Care For the Purpose of:: To decrease pain, To decrease swelling/inflammation, To improve muscle performance and motor function, To improve ability to perform ADL's, To increase tolerance to activity/condition/position, To improve ability of physical actions for home/community/work/leisure, To improve health of tissue, To decrease soft tissue restriction and To increase flexibility/ROM Therapeutic Exercise to Include: Strength training, Postural training, Flexibilty training and Dynamic Lumbar Stabilization For the Purpose of:: To decrease pain, To increase ROM, To improve muscle performance and motor function, To improve ability to perform ADL's, To increase tolerance to activity/condition/position, To improve ability of physical actions for home/community/work/leisure, To improve health of tissue, To decrease soft tissue restriction, To increase flexibility/ROM and To prevent re-injury TENS: Yes IF ES: Yes Cryotherapy (ice pack, ice massage): Yes Thermo therapy (hot pack): Yes Ultrasound (thermal/non thermal): Yes For the Purpose of:: To decrease pain, To increase ROM, To improve nutrient delivery to tissue, To increase oxygenation perfusion, To improve health of tissue and To decrease soft tissue restriction Text: Thank you for the opportunity to evaluate your patient. For Medicare and Medicare HMO plans, please review the plan of care and approve it. It will need to be FAXED BACK to us at [phone] for Medicare purposes. For Medicare only, by signing this I certify the plan of care. Please let me know if there are questions or concerns regarding this plan of care. Physician Signature: Date:
--- NOTE | 2024-11-12 13:55 | HP.PTDCSUM_ITS ---
Discharge Summary D/C summary: It has been my pleasure to treat MONSE WILSON referred by Dr. Wagner Barrera MD, with the diagnosis of LUMBAR DISC HERNIATION WITH RADICULOPATHY for a total of 6 visit(s). Discharge Date: 11/12/24 Please see the following information for a summary of their discharge status. Subjective Subjective: Leaving to to [place] Doing well Pain Bilateral Back: Pain Intensity (Out of 10): 0 Overall Improvement % Improvement: 80 Objective Objective/Function: POSTURE: WFL GAIT: reciprocal pattern MMT: QUADS/HAMS/HIP 5/5 ,ANKLE 5/5 LUMBAR ROM: flexion min loss ,extension WFL,side glides min loss Goals Goal 1:: Patient to be I with HEP for back Goal Progress: Goal Met Goal 2:: Patient to improve back oswestry score by 5 points to improve QOL Goal Progress: Goal Met Goal 3:: Patient to demonstrate 50% improvement with less pain and improved function Goal Progress: Goal Met Goal 4:: Patient to improve lumbar ROM for function of recovery Goal 5:: Patient has less pain with walking and standing with improvement of ADL's min limiations Plan Plan: PT INTERVENTIONS HUNTER DLS ,POSTURAL EX'S , LE FLEXABILITY AND MODALITIES D/C Information Discharge Comments: HEP d/c sentence: If there are questions or concerns regarding this patient's physical therapy, please feel free to call me at [phone]. Thank you for the referral of this patient. Sincerely, Dagoberto Banks, PT, Cert MDT, OCS Balance/Gait/Functional tests Balance/Special Test Scores Oswestry Low Back Score: 0 Improvement % Improvement: 80
== END 2024-11-12 19:00 | disposition home or self-care (01) ==
LOC: PT 13:00
PROVIDERS: PCP Nurse Practitioner Family; Referring Provider Orthopaedic Surgery Orthopaedic Surgery of the Spine; Visit Provider Orthopaedic Surgery Orthopaedic Surgery of the Spine
DX: M51.16 Intervertebral disc disorders with radiculopathy, lumbar region (principal)
CPT/HCPCS: 97110; 97162

== ENCOUNTER → 2025-04-12 | Outpatient (CLI) | payer MEDICARE, SELFPAY ==
[2025-04-12 13:01] LABS: Absolute Lymphocyte Count 1.58 X10^3/uL (0.83-4.51); Absolute Neutrophil Count 5.8 X10^3/uL (2.0-7.7); Basophil# 0.04 X10^3/uL; Basophil% 0.4 % (0-1); Eosinophil# 0.21 X10^3/uL; Eosinophils% 2.4 % (0-5); Hematocrit 47.8 % (40-54); Hemoglobin 15.7 g/dL (13.0-16.5); Lymphocyte # 1.58 X10^3/ul (0.83-4.51); Lymphocyte % 17.8 % (19-41); Mean Corp Hgb Conc 32.8 g/dL (32-36); Mean Corpuscular Hgb 30.1 pg (27.0-32.0); Mean Corpuscular Volume 91.7 fL (80-94); Mean Platelet Vol. 11.2 fl (6.2-12.0); Monocyte# 1.24 X10^3/uL; Monocyte% 13.9 % (0-10); NRBC Flagged by Analyzer 0 % (0-5); Neutrophil % 65.2 % (47-70); Platelet Count 241 K/mm3 (150-450); RBC Distribution Width CV 13.3 % (11.6-14.6); RBC Distribution Width SD 44.9 fl (35.1-43.9); Red Blood Count 5.21 M/mm3 (4.6-6.2); White Blood Count 8.9 K/mm3 (4.4-11.0)
[2025-04-12 13:29] LABS: ALB/GLOB Ratio 1.3 RATIO (0.9-2.4); AST(SGOT) 20 U/L (<=37); Alanine Aminotransfer ALT/SGPT 13 U/L (<=46); Albumin, Serum 4.3 g/dL (3.4-4.8); Alkaline Phosphatase 51 U/L (40-129); Anion Gap 11 (5-15); BUN 13 mg/dL (4-19); BUN/Creat Ratio 11.4 RATIO (10-20); Calcium,Total 9.5 mg/dL (7.6-11.0); Carbon Dioxide 25.4 mmol/L (21.0-32.0); Chloride 102 mmol/L (98-108); Cholesterol 182 mg/dL (<=200); Creatinine, Serum 1.16 mg/dL (0.70-1.20); EST Glomerular Filtration Rate 68 (>60); Globulin 3.2 g/dL (2.2-4.2); Glucose 90 mg/dL (70-99); High Density Lipoprotein 63 mg/dL; Low Density Lipoprotein Calc. 103 mg/dL; PSA,Total - Annual Screen 7.48 ng/mL (0.02-4.00); Potassium 4.2 mmol/L (3.3-5.1); Protein, Total 7.6 g/dL (5.9-8.4); Sodium Level 139 mmol/L (133-145); Total Bilirubin 1.24 mg/dL (0.00-1.30); Triglycerides 83 mg/dL; Very Low Density Lipoprotein 17 mg/dL (5-40)
== END | disposition home or self-care (01) ==
PROVIDERS: PCP Nurse Practitioner Family; Referring Provider Nurse Practitioner Family; Visit Provider Nurse Practitioner Family
DX: I10 Essential (primary) hypertension (principal); E78.5 Hyperlipidemia, unspecified; Z12.5 Encounter for screening for malignant neoplasm of prostate
CPT/HCPCS: 36415; 80053; 80061; 84153; 85025; G0103

== ENCOUNTER → 2025-05-30 | Outpatient (CLI) | payer MEDICARE, SELFPAY ==
--- NOTE | 2025-05-30 17:26 | MRI_ITS ---
PROCEDURE: PELVIS W/WO CONTRAST, 05/30/2025 REASON FOR EXAM: ELEVATED PSA. PSA reportedly 7.48 on unspecified date, per technologist report. TECHNIQUE: Multisequence multiplanar MRI pelvis was performed with and without IV contrast. IV Contrast: 15 mL Clariscan COMPARISON: None FINDINGS: Exam limited by artifact related to bowel gas. Variable overall mild motion limitation. Prostate size: 3.9 x 3.2 x 2.7 cm, estimated volume 17.5 mL, although likely overestimated given changes of prior TURP. Per the above provided PSA, PSA density is 0.427 ng/mL, although likely underestimated given changes of prior TURP. Transition zone: TURP as above with relatively little to no remaining transition zone parenchyma. PI-RADS 2 findings. Peripheral Zone: Fairly prominent background changes of likely prostatitis (PI- RADS 2), making delineation of additional lesions somewhat challenging: *Lesion 1: RIGHT posterior peripheral zone base extending into the posterolateral midgland and slightly into the posteromedial midgland, difficult to measure, roughly 1.8 cm (series 12 images 10-11, best seen on series 13.7, image 12).. *T2 score: Borderline; felt the best considered T2 score 4. *DWI score: 3 *DCE: Positive. *Overall PI-RADS: PI-RADS 4. *Extracapsular extension:No definite extracapsular extension, however, there is capsular abutment greater than 1 cm which increases the risk of occult early/microscopic extracapsular extension. Note that this includes the region of the RIGHT neurovascular bundle, which appears grossly unremarkable. *Lesion 2: Additional ill-defined signal in the remaining RIGHT posteromedial base, LEFT posteromedial base, and extending into the LEFT posterior peripheral zone midgland and apex spanning up to 2.5 cm on a single axial image (series 12, image 12). *T2 score: 3. *DWI score: 3. *DCE: Negative. *Overall PI-RADS: 3. *Extracapsular extension:No definite extracapsular extension, however, there is capsular abutment greater than 1 cm which increases the risk of occult early/microscopic extracapsular extension. Note that this includes abutment of the LEFT neurovascular bundle and anterior rectum, without definite invasion. Neurovascular bundles: As above. Seminal vesicles: Unremarkable. Bladder: Grossly unremarkable. Lymph nodes: Unremarkable. Bones: No destructive or frankly suspicious bony lesions identified. Other: None. MRI/Pelvis W/WO Contrast IMPRESSION: 1. 1.8 cm PI-RADS 4 lesion in the RIGHT posterior peripheral zone as detailed ( lesion 1). 2. 2.5 cm PI-RADS 3 lesion in the remaining LEFT posterior peripheral zone as d etailed (lesion 2). 3. No definite extracapsular extension, however, there is capsular abutment gre ater than 1 cm by both lesions which increases the risk of occult early/microscopic extracapsular extension. Note that this includ es abutment of the bilateral neurovascular bundles and anterior rectum, without definite involvement. 4. No overt pelvic lymphadenopathy. 5. Additional description as above. Reading Location: [id number]
== END | disposition home or self-care (01) ==
LOC: OPMRI 15:35
PROVIDERS: PCP Nurse Practitioner Family; Referring Provider Urology; Visit Provider Urology
DX: R97.20 Elevated prostate specific antigen [PSA] (principal)
CPT/HCPCS: 72197; A9575; A4216

== ENCOUNTER 2025-06-03 09:06 | Emergency (ER) | payer MEDICARE, SELFPAY ==
[2025-06-03 09:08] VITALS: BP 114/74; PULSE 96; RESP 16; TEMP 38.5; O2SAT 97
[2025-06-03 09:10] VITALS: BP 127/81; PULSE 84; RESP 15; TEMP 38.6; O2SAT 97; BMI 26.5
[2025-06-03 09:34] VITALS: O2SAT 96
--- NOTE | 2025-06-03 09:34 | EKG12_ITS ---
Test Reason : Blood Pressure : */* mmHG Vent. Rate : 84 BPM Atrial Rate : 84 BPM P-R Int : 144 ms QRS Dur : 140 ms QT Int : 356 ms P-R-T Axes : 52 -56 10 degrees QTcB Int : 420 ms Normal sinus rhythm Right bundle branch block Left anterior fascicular block Bifascicular block Abnormal ECG Confirmed by Bereket Javed ([id number]), assistant film editor NILDA GASTON ([id number]) on 06/04/2025 1:15:19 PM Referred By: TL/UG Confirmed By: Bereket Javed
--- NOTE | 2025-06-03 09:35 | EX.ED.DYSGE1 ---
HPI History of Present Illness Chief Complaint: Fever Informant: patient and spouse/S.O. Narrative Narrative: Presents here with spouse increasing weakness with fever and chills. States 2 days ago working the garden felt achy in his legs that resolved. Per spouse slept all day due to weakness. Took Advil yesterday. Having chills currently. Has urine frequency. No abdominal pain no vomiting or diarrhea. No cough symptoms. No sick contacts. States per spouse has had other episodes of fever causing symptoms. He has no significant past medical history. Reported recent MRI of his prostate due to elevated PSA. This was done at the facility here this past week. Try to keep up with fluids. Prior similar symptoms: Yes PFSH [facility] Medical History Wears hearing aid Loss of hearing Wears glasses Alcohol use Prostate disease Hematoma Back pain Dietary restriction Non-smoker History of irregular heartbeat Cardiology follow-up encounter History of basal cell carcinoma Abnormal EKG DDD (degenerative disc disease), lumbosacral Home Medications ?Medication ?Instructions ?Recorded ?Last Taken ?Type pantoprazole 40 mg tablet,delayed 40 mg PO DAILY 06/03/25 06/01/25 History release Allergy/AdvReac Type Severity Reaction Status Date / Time No Known Allergies Allergy Verified 06/03/25 09:10 Family History Father , age 62 Heart disease Mother Atrial fibrillation Surgical History History of transurethral resection of prostate (09/15/22) Hx of oral surgery History of microdiscectomy History of repair of right rotator cuff Social History Smoking Status: Never smoker alcohol intake: current alcohol intake frequency: a few times a week substance use type: does not use caffeine: Yes Type: coffee Number of servings: 5 ROS ROS ED Constitutional Constitutional ED: Reports chills and fever(s); Denies sweats ENT ENT ED: Denies sore throat Cardiovascular Cardiovascular: Denies chest pain, leg edema, palpitations or racing heartbeat Respiratory/Chest Respiratory/Chest: Denies cough, dyspnea or dyspnea on exertion Gastrointestinal Gastrointestinal: Denies abdominal pain, diarrhea, nausea or vomiting Genitourinary Genitourinary ED: Reports urinary frequency; Denies dysuria or hematuria Musculoskeletal Musculoskeletal: Denies back pain, extremity pain or neck pain Integumentary Denies rash or wounds Neurologic Neurologic: Reports weakness; Denies headache(s) or paresthesias EXAM Physical Exam Const Vital Signs: 06/03/25 09:08 06/03/25 09:10 06/03/25 09:34 Temperature 101.3 F H 101.4 F H Temperature Source Oral Temporal Pulse Rate 96 84 Respiratory Rate 16 15 Blood Pressure 114/74 127/81 H Blood Pressure Mean 87 96 Pulse Ox 97 97 96 Oxygen Delivery Method Room Air Room Air Room Air 06/03/25 10:55 06/03/25 11:21 06/03/25 12:47 Temperature 99.9 F H 99.1 F 99.0 F Temperature Source Oral Oral Pulse Rate 85 81 89 Respiratory Rate 16 22 H 16 Blood Pressure 114/75 107/76 133/74 H Blood Pressure Mean 88 86 93 Pulse Ox 96 96 96 Oxygen Delivery Method Room Air Room Air Positive well nourished and well developed General Appearance ED: well developed and NAD HEENT Reports dry mucous membranes normocephalic and atraumatic Mouth ED: Yes dry mucous membranes Mouth: dry mucous membranes Eyes General Eye ED: Yes normal appearance of both eyes Neck full ROM Chest Wall Chest: Negative for tenderness Resp normal respiratory effort and normal air movement Effort and Inspection: symmetric chest movement; Negative for respiratory distress Cardio regular rate, regular rhythm and no murmurs Peripheral Pulses: pulses 2+ throughout GI normal to inspection, nondistended, normoactive bowel sounds and non-tender Palpation: Negative for guarding or rebound tenderness present Extremity normal to inspection General Extremety ED: Negative for edema or tenderness General Extremity: Negative for edema Neuro oriented x3, CN's II-XII intact bilaterally and no sensory deficits noted Sensorium / Orientation: awake and alert Skin no rashes or lesions noted and no wounds MDM MDM MDM Narrative Medical decision making narrative: Interventions / MDM: Differential diagnosis: Dehydration, fever, electrolyte abnormalities, Diagnosis considered but do not suspect: UTI however urine negative. My EKG interpretation: Sinus rate of 84, no ST changes. T wave version leads III nonspecific. Right bundle branch block. Left anterior fascicular block. Similar findings from August 2022. Imaging independently reviewed and interpreted by myself: N/A External documents reviewed: N/A Test considered but not ordered:N/A ED course: Febrile heart rate in the 90s. Sepsis labs ordered. Dry mucosal membranes. IV fluids will be given. Will give Tylenol. Workup negative. Urine negative. Fever improved with Tylenol. Discussed likely viral syndrome patient with spouse. Discussed blood cultures are in the lab and pending however low suspicion and with no foreign bodies or procedures that can lead to bacteremia. Use Tylenol or Motrin as needed. Outpatient follow-up. All questions were answered. Re-evaluation: stable Disposition discussed with patient/family/significant other: Patient and spouse Case discussed with consulting clinician: N/A This note was generated with [employer] dictation software. It may contain incorrect words, spelling, and punctuation that were not noted in checking the note before signing. Lab Data Attestation: I reviewed the patient's lab results. Labs: Laboratory Results - last 24 hr 06/03/25 06/03/25 09:45 10:25 WBC 7.2 RBC 5.62 Hgb 16.6 H Hct 50.6 MCV 90.0 MCH 29.5 MCHC 32.8 RDW Std Deviation 43.5 RDW Coeff of Kaylee 13.2 Plt Count 146 L MPV 10.7 Immature Gran % (Auto) 0.400 Neut % (Auto) 71.0 H Lymph % (Auto) 13.7 L [place] % (Auto) 14.5 H Eos % (Auto) 0.0 Baso % (Auto) 0.4 Absolute Neuts (auto) 5.1 Absolute Lymphs (auto) 0.98 Nucleated RBC % 0 PT 13.3 INR 1.0 APTT 27.5 Sodium 135 Potassium 3.7 Chloride 99 Carbon Dioxide 22.7 Anion Gap 14 BUN 9 Creatinine 1.21 H Est GFR (MDRD) Non-Af 64 BUN/Creatinine Ratio 7.0 L Glucose 99 Lactic Acid 1.8 Calcium 9.1 Total Bilirubin 0.65 AST 66 H ALT 61 H Alkaline Phosphatase 67 Total Protein 7.8 Albumin 4.2 Globulin 3.7 Albumin/Globulin Ratio 1.1 Urine Color Yellow Urine Clarity Clear Urine pH 7.0 Ur Specific Jay 1.010 Urine Protein 15 H Urine Glucose (UA) Normal Urine Ketones Negative Urine Occult Blood 10 H Urine Nitrite Negative Urine Bilirubin Negative Urine Urobilinogen Normal Ur Leukocyte Esterase Negative Urine RBC 0 SEEN Urine WBC 0 SEEN Ur Squamous Epith Cells 0 SEEN Urine Bacteria 1+ Urine Mucus 0 SEEN Discharge Plan Triage Chief Complaint: Fever ED Provider: Rocky Win Dx/Rx/DC Orders Clinical Impression: Fever, Weakness, Viral syndrome Instructions: ED Fever Control (Adult), ED Viral Syndrome (Adult) Prescriptions: No Action pantoprazole 40 mg tablet,delayed release (DR/EC) 40 mg PO DAILY Primary Care Provider: Paris Conley Referrals: Paris Conley, HORTICULTURAL NURSERY ASSISTANT-C [Primary Care Provider] - 3-5 Days Activity Restrictions/Additional Instructions: Blood cultures pending. White count normal. Urine negative for infection. COVID flu and RSV negative. Monitor for any additional symptoms continue oral fluids for hydration. Tylenol or Motrin as needed for aches and fever control. Follow-up with your doctor. Print Language: New Zealander Disposition Disposition: Home, Self Care Discharge Date/Time: 06/03/25 12:47
[2025-06-03] MEDS: 0.9% Normal Saline (1000mL) 1,000 ML 999 ML IV (09:57)
[2025-06-03 10:09] LABS: Hematocrit 50.6 % (40-54); Hemoglobin 16.6 g/dL (13.0-16.5); Immature Granulocytes Count 0.030 X10^3/uL (0.0-0.0); Mean Corp Hgb Conc 32.8 g/dL (32-36); Mean Corpuscular Volume 90.0 fL (80-94); Mean Platelet Vol. 10.7 fl (6.2-12.0); NRBC Flagged by Analyzer 0 % (0-5); Platelet Count 146 K/mm3 (150-450); RBC Distribution Width CV 13.2 % (11.6-14.6); RBC Distribution Width SD 43.5 fl (35.1-43.9); Red Blood Count 5.62 M/mm3 (4.6-6.2); White Blood Count 7.2 K/mm3 (4.4-11.0)
[2025-06-03 10:24] LABS: Prothrombin Time (Protime)PT. 13.3 SECONDS (11.7-14.9)
[2025-06-03 10:25] LABS: Partial Thromboplast Time 27.5 Seconds (24.1-36.2)
[2025-06-03 10:33] LABS: Color, Urine Yellow (Yellow); Glucose, Dipstick Normal (Normal); Ketone-Dipstick Negative (Negative); Leukocyte Esterase-Dipstick Negative /ul (Negative); Mucous, Urine 0 SEEN /hpf (<or=2+); Nitrite-Dipstick Negative (Negative); Occult Blood-Urine 10 /ul (Negative); Protein-Dipstick 15 mg/dl (Negative); Red Blood Cells-Urine 0 SEEN /hpf (0-5); Specific Gravity, Urine 1.010 (1.002-1.030); Squamous Epithelial Cells - UA 0 SEEN /hpf (0-5); Urine Bilirubin Dipstick Negative (Negative)
[2025-06-03 10:48] LABS: AST(SGOT) 66 U/L (<=37); Alanine Aminotransfer ALT/SGPT 61 U/L (<=46); Albumin, Serum 4.2 g/dL (3.4-4.8); Alkaline Phosphatase 67 U/L (40-129); Anion Gap 14 (5-15); BUN 9 mg/dL (4-19); BUN/Creat Ratio 7.0 RATIO (10-20); Calcium,Total 9.1 mg/dL (7.6-11.0); Carbon Dioxide 22.7 mmol/L (21.0-32.0); Chloride 99 mmol/L (98-108); Globulin 3.7 g/dL (2.2-4.2); Glucose 99 mg/dL (70-99); Potassium 3.7 mmol/L (3.3-5.1)
[2025-06-03 10:55] VITALS: BP 114/75; PULSE 85; RESP 16; TEMP 37.7; O2SAT 96
[2025-06-03 11:21] VITALS: BP 107/76; PULSE 81; RESP 22; TEMP 37.3; O2SAT 96
[2025-06-03 12:47] VITALS: BP 133/74; PULSE 89; RESP 16; TEMP 37.2; O2SAT 96
== END 2025-06-03 12:47 | disposition home or self-care (01) ==
PROVIDERS: Emergency Provider Emergency Medicine; PCP Nurse Practitioner Family; Visit Provider Emergency Medicine
DX: B34.9 Viral infection, unspecified (principal); R53.1 Weakness; R50.9 Fever, unspecified; R35.0 Frequency of micturition; I45.2 Bifascicular block
CPT/HCPCS: 80053; 81001; 83605; 85025; 85610; 85730; 87040; 87086; 87088; 87631; 93005; 96360; 96361; 99284; A4216

== ENCOUNTER → 2025-06-05 | Outpatient (CLI) | payer MEDICARE, SELFPAY | END | disposition home or self-care (01) | LOC: LAB 10:03 | PROVIDERS: PCP Nurse Practitioner Family; Referring Provider Nurse Practitioner Family; Visit Provider Nurse Practitioner Family | DX: R50.9 Fever, unspecified (principal); R53.83 Other fatigue; W57.XXXA Bitten or stung by nonvenomous insect and other nonvenomous arthropods, initial encounter | CPT/HCPCS: 36415 ==

== ENCOUNTER → 2025-06-07 | Outpatient (CLI) | payer MEDICARE, SELFPAY | END | disposition home or self-care (01) | LOC: LAB.FUTURE 09:57 → LAB 10:00 | PROVIDERS: PCP Nurse Practitioner Family; Referring Provider Nurse Practitioner Family; Visit Provider Nurse Practitioner Family | DX: R50.9 Fever, unspecified (principal); R53.83 Other fatigue; W57.XXXA Bitten or stung by nonvenomous insect and other nonvenomous arthropods, initial encounter; Z20.9 Contact with and (suspected) exposure to unspecified communicable disease | CPT/HCPCS: 36415; 86617 ==

== ENCOUNTER → 2025-06-13 | Outpatient (CLI) | payer MEDICARE, SELFPAY ==
[2025-06-13 17:31] LABS: AST(SGOT) 147 U/L (<=37); Alanine Aminotransfer ALT/SGPT 135 U/L (<=46); Albumin, Serum 3.0 g/dL (3.4-4.8); Alkaline Phosphatase 391 U/L (40-129); Bilirubin, Direct 1.50 mg/dL (0.00-0.30); Globulin 3.5 g/dL (2.2-4.2)
[2025-06-17 16:09] LABS: CMV Acute Antibody IgM < 30.0 AU/mL (0.0-29.9); EBV Acute VCA IgM < 36.0 U/mL (0.0-35.9); EBV-VCA IgG 247.0 U/mL (0.0-17.9); Lyme Scn Total Ab w/Rflx Negative (Negative); West Nile Virus, IgG Equivocal (Negative); West Nile Virus, IgM Negative (Negative)
== END | disposition home or self-care (01) ==
LOC: LAB 15:35
PROVIDERS: PCP Nurse Practitioner Family; Referring Provider Internal Medicine Infectious Disease; Visit Provider Internal Medicine Infectious Disease
DX: B27.90 Infectious mononucleosis, unspecified without complication (principal)
CPT/HCPCS: 36415; 80076; 86618; 86644; 86645; 86664; 86665; 86788; 86789

== ENCOUNTER 2025-06-20 10:17 | Emergency (ER) | payer MEDICARE, SELFPAY ==
[2025-06-20 10:17] VITALS: BP 108/75; PULSE 111; RESP 14; TEMP 36.7; O2SAT 96
--- NOTE | 2025-06-20 10:38 | EKG12_ITS ---
Test Reason : GENERAL Blood Pressure : */* mmHG Vent. Rate : 97 BPM Atrial Rate : 97 BPM P-R Int : 132 ms QRS Dur : 128 ms QT Int : 370 ms P-R-T Axes : 41 -73 12 degrees QTcB Int : 469 ms Normal sinus rhythm Right bundle branch block Left anterior fascicular block Bifascicular block Abnormal ECG Confirmed by JUANA FAIR ([id number]), story editor NILDA GASTON ([id number]) on 06/24/2025 6:45:17 AM Referred By: Confirmed By: JUANA FAIR
--- NOTE | 2025-06-20 10:38 | RAD_ITS ---
PROCEDURE: CHEST PA AND LATERAL 06/20/2025 REASON FOR EXAM: Weakness and fever TECHNIQUE: CHEST PA AND LATERAL COMPARISON: None FINDINGS: Hardware: EKG leads Heart: Normal Mediastinum: Normal Lungs: Clear. No pneumothorax or pleural effusion. Bones: Degenerative changes are identified within the thoracic spine. RAD/Chest PA and Lateral IMPRESSION: No acute cardiopulmonary process Reading Location: [id number]
--- NOTE | 2025-06-20 10:41 | EX.ED.DYSGE1 ---
HPI History of Present Illness Chief Complaint: Fatigue Narrative Narrative: Chief complaint and HPI: Fatigue and weakness. 69-year-old male with past medical history of GERD presents with for evaluation of fatigue and weakness. Most of the history is given by . For the past 2 weeks patient has endorsed fatigue and weakness. Originally his symptoms started with fevers as well. He was seen in our emergency department on 06/03/2025. At that time he had a relatively unremarkable workup except for mild transaminitis and was discharged home. states that the patient's symptoms have continued in which she has followed up with PCP and infectious disease. She states that he has had multiple labs performed by infectious disease and was found to have EBV however suspect likely old infection not current. He did have elevated liver enzymes in which the plan was for an outpatient ultrasound. states that the fevers have improved however the patient has remained fatigued and weak. He endorses a decreased appetite in which he has lost weight. He denies any headache, shortness of breath, chest pain, abdominal pain, nausea, vomiting, dysuria. States he just feels tired and weak. Review of systems: See HPI Medications: As listed on the chart Allergies: As listed on the chart PFSH: Per chart Vital signs: As listed on the chart. Reviewed. Physical exam: Gen: Fatigued &O x3, NAD Head: Normocephalic, atraumatic Eyes: No sclera icterus, conjunctiva clear, PERRL, EOMI ENT: TMs clear BL, mildly dry mucous membranes, posterior oropharynx unremarkable, uvula midline, tonsils not enlarged, no tonsillar exudates Neck: Trachea midline, No JVD, Full ROM, No meningismus CV: RRR, no murmurs, no peripheral edema Resp: Lungs CTA BL, no w/r/c GI: Abd soft, non-distended, non-tender, no r/r/g Musc: Full ROM, no deformity, strength +5/5 in all extremities Skin: Warm, dry, no rash Neuro: Alert, oriented, grossly intact, sensation intact Psych: Cooperative, appropriate mood and affect [facility] Medical History Wears hearing aid Loss of hearing Wears glasses Alcohol use Prostate disease Hematoma Back pain Dietary restriction Non-smoker History of irregular heartbeat Cardiology follow-up encounter History of basal cell carcinoma Abnormal EKG DDD (degenerative disc disease), lumbosacral Home Medications ?Medication ?Instructions ?Recorded ?Last Taken ?Type pantoprazole 40 mg tablet,delayed 40 mg PO DAILY 06/03/25 06/01/25 History release Allergy/AdvReac Type Severity Reaction Status Date / Time No Known Allergies Allergy Verified 06/20/25 10:18 Family History Father , age 62 Heart disease Mother Atrial fibrillation Surgical History History of transurethral resection of prostate (09/15/22) Hx of oral surgery History of microdiscectomy History of repair of right rotator cuff Social History Smoking Status: Never smoker alcohol intake: current alcohol intake frequency: a few times a week substance use type: does not use caffeine: Yes Type: coffee Number of servings: 5 EXAM Physical Exam Const Vital Signs: 06/20/25 10:17 06/20/25 10:47 06/20/25 12:00 Temperature 98.1 F Temperature Source Temporal Pulse Rate 111 H 87 Respiratory Rate 14 24 H Respiratory Effort Normal Non-Labored Respiratory Pattern Normal Blood Pressure 108/75 127/83 H Blood Pressure Mean 86 96 Pulse Ox 96 97 Oxygen Delivery Method Room Air MDM MDM MDM Narrative Medical decision making narrative: 69-year-old male with past medical history of GERD presents with for evaluation of fatigue and weakness. History given by patient, , medical record. See HPI. For the past 2 weeks patient has endorsed fatigue and weakness. Originally his symptoms started with fevers as well. He was seen in our emergency department on 06/03/2025. At that time he had a relatively unremarkable workup except for mild transaminitis and was discharged home. Patient saw infectious disease and found to have EBV however suspect likely old infection. Elevated liver enzymes with plan for outpatient ultrasound. On chart review, patient had multiple serology labs performed via infectious disease. Including Lyme testing, CMV, West Nile, EBV. He did have hyperbilirubinemia with transaminitis. In chart review there does not appear to be thyroid function or hepatitis panel obtained. Will order these. Differential diagnosis includes but is not limited to viral illness, electrolyte abnormality, MARTA, UTI, thyroid disorder, liver disease. NS bolus ordered. Basic labs ordered along with TSH, ammonia level, hepatitis panel. CBC unremarkable without leukocytosis or anemia. BMP with mild dehydration without MARTA. Lactic acid unremarkable. Magnesium level unremarkable. Liver profile improving. Total bilirubin 1.34 down from 2.0. His direct bilirubin is mildly elevated at 0.85 this is down from 1.5. His AST is 43 down from 147 and his ALT has normalized. Alk phosphatase decreasing 191 from the 391. Patient not endorsing any right upper quadrant pain or abdominal pain. I do not think any emergent liver or abdominal ultrasound is needed at this time. TSH unremarkable. Troponin unremarkable. Ammonia level unremarkable. Hepatitis panel is a send out which will take days to result per lab. His COVID, flu, RSV is negative. His UA is negative for UTI. At this point in time, no clear etiology for patient's fatigue and weakness. Recommend following up with PCP and continuing outpatient workup. Patient and family updated of all the results and the plan. They confirmed understanding. They were offered referral for rehab placement for weakness but declined. Patient is stable to discharge home. EKG: Interpreted by me/EM physician: EKG shows normal sinus rhythm with bifascicular block. This is similar to previous EKG in May. Heart rate 97. Diagnostic: Interpreted by me/EM physician: Chest x-ray without pneumonia, effusion, cardiomegaly, pneumothorax Impression: 1. Weakness 2. Fatigue Lab Data Labs: Laboratory Results - last 24 hr 06/20/25 06/20/25 06/20/25 10:50 11:10 11:15 WBC 10.1 RBC 4.82 Hgb 13.8 Hct 41.3 MCV 85.7 MCH 28.6 MCHC 33.4 RDW Std Deviation 45.2 H RDW Coeff of Kaylee 14.4 Plt Count 322 MPV 9.5 Immature Gran % (Auto) 0.700 Neut % (Auto) 62.2 Lymph % (Auto) 25.6 [place] % (Auto) 10.4 H Eos % (Auto) 0.2 Baso % (Auto) 0.9 Absolute Neuts (auto) 6.3 Absolute Lymphs (auto) 2.58 Nucleated RBC % 0 Sodium 131 L Potassium 4.2 Chloride 98 Carbon Dioxide 20.2 L Anion Gap 13 BUN 12 Creatinine 0.90 Estim Creat Clear Calc 68.92 Est GFR (MDRD) Non-Af 91 BUN/Creatinine Ratio 13.6 Glucose 121 H Lactic Acid 2.0 Calcium 9.0 Magnesium 2.2 Total Bilirubin 1.34 H Direct Bilirubin 0.85 H AST 43 H ALT 44 Alkaline Phosphatase 191 H Ammonia 19.0 Troponin T High Sens 8 Total Protein 7.8 Albumin 3.3 L Globulin 4.5 H TSH 1.590 Urine Color Yellow Urine Clarity Clear Urine pH 6.5 Ur Specific [place] 1.010 Urine Protein 15 H Urine Glucose (UA) Normal Urine Ketones Negative Urine Occult Blood Negative Urine Nitrite Negative Urine Bilirubin Negative Urine Urobilinogen Normal Ur Leukocyte Esterase Negative Urine RBC 0 SEEN Urine WBC 0 SEEN Ur Squamous Epith Cells 0 SEEN Urine Bacteria 0 SEEN Urine Mucus 0 SEEN Radiography Diagnostic Testing: Clinical Impression(s) from Imaging Studies Chest X-Ray 06/20/25 10:38 IMPRESSION: No acute cardiopulmonary process Reading Location: [facility] Discharge Plan Triage Chief Complaint: Fatigue ED Provider: Eduar Davis Dx/Rx/DC Orders Prescriptions: No Action pantoprazole 40 mg tablet,delayed release (DR/EC) 40 mg PO DAILY Primary Care Provider: Paris Conley Referrals: Paris Conley, [employer] S[employer]OR OPERATOR-[employer] [Primary Care Provider] - Print Language: Slovenian
[2025-06-20 10:59] VITALS: BMI 25.0
[2025-06-20 11:00] LABS: Hematocrit 41.3 % (40-54); Hemoglobin 13.8 g/dL (13.0-16.5); Immature Granulocytes Count 0.070 X10^3/uL (0.0-0.0); Mean Corp Hgb Conc 33.4 g/dL (32-36); Mean Corpuscular Volume 85.7 fL (80-94); Mean Platelet Vol. 9.5 fl (6.2-12.0); NRBC Flagged by Analyzer 0 % (0-5); Platelet Count 322 K/mm3 (150-450); RBC Distribution Width CV 14.4 % (11.6-14.6); RBC Distribution Width SD 45.2 fl (35.1-43.9); Red Blood Count 4.82 M/mm3 (4.6-6.2); White Blood Count 10.1 K/mm3 (4.4-11.0)
[2025-06-20] MEDS: 0.9% Normal Saline (1000mL) 1,000 ML 1000 ML IV (11:04)
[2025-06-20 11:19] LABS: Mucous, Urine 0 SEEN /hpf (<or=2+); Red Blood Cells-Urine 0 SEEN /hpf (0-5); Squamous Epithelial Cells - UA 0 SEEN /hpf (0-5)
[2025-06-20 11:25] LABS: Color, Urine Yellow (Yellow); Glucose, Dipstick Normal (Normal); Ketone-Dipstick Negative (Negative); Leukocyte Esterase-Dipstick Negative /ul (Negative); Nitrite-Dipstick Negative (Negative); Occult Blood-Urine Negative /ul (Negative); Protein-Dipstick 15 mg/dl (Negative); Specific Gravity, Urine 1.010 (1.002-1.030); Urine Bilirubin Dipstick Negative (Negative)
[2025-06-20 11:54] LABS: AST(SGOT) 43 U/L (<=37); Alanine Aminotransfer ALT/SGPT 44 U/L (<=46); Albumin, Serum 3.3 g/dL (3.4-4.8); Alkaline Phosphatase 191 U/L (40-129); Anion Gap 13 (5-15); BUN 12 mg/dL (4-19); BUN/Creat Ratio 13.6 RATIO (10-20); Bilirubin, Direct 0.85 mg/dL (0.00-0.30); Calcium,Total 9.0 mg/dL (7.6-11.0); Carbon Dioxide 20.2 mmol/L (21.0-32.0); Chloride 98 mmol/L (98-108); Estimated Creatinine Clearance 68.92 ml/min (50-250); Globulin 4.5 g/dL (2.2-4.2); Glucose 121 mg/dL (70-99); Magnesium 2.2 mg/dL (1.5-2.2); Potassium 4.2 mmol/L (3.3-5.1)
[2025-06-20 12:00] VITALS: BP 127/83; PULSE 87; RESP 24; O2SAT 97
[2025-06-20 12:11] LABS: Troponin T High Sensitivity 8 ng/L (<=22)
[2025-06-20 12:13] LABS: Ammonia 19.0 umol/L (16-60)
[2025-06-20 13:27] VITALS: BP 126/57; PULSE 66; RESP 17; TEMP 37.2; O2SAT 100
[2025-06-20 14:55] LABS: Reflex Lactate? Y
[2025-06-21 05:07] LABS: HEPATITIS B SURFACE AG Negative (Negative); Hep C Antibodies Non Reactive (Non Reactive)
== END 2025-06-20 13:28 | disposition home or self-care (01) ==
PROVIDERS: Emergency Provider Surgery; PCP Nurse Practitioner Family; Visit Provider Surgery
DX: E86.0 Dehydration (principal); K21.9 Gastro-esophageal reflux disease without esophagitis; R53.83 Other fatigue
CPT/HCPCS: 71046; 80048; 80074; 80076; 81001; 82140; 83605; 83735; 84443; 84484; 85025; 87631; 93005; 96360; 96361; 99284; A4216

== ENCOUNTER → 2025-06-24 | Outpatient (CLI) | payer MEDICARE, SELFPAY ==
[2025-06-24 16:44] LABS: AST(SGOT) 49 U/L (<=37); Alanine Aminotransfer ALT/SGPT 43 U/L (<=46); Albumin, Serum 3.2 g/dL (3.4-4.8); Alkaline Phosphatase 179 U/L (40-129); Bilirubin, Direct 0.61 mg/dL (0.00-0.30); Globulin 4.3 g/dL (2.2-4.2)
== END | disposition home or self-care (01) ==
LOC: LAB 14:04
PROVIDERS: PCP Nurse Practitioner Family; Referring Provider Nurse Practitioner Family; Visit Provider Nurse Practitioner Family
DX: R74.8 Abnormal levels of other serum enzymes (principal); R50.9 Fever, unspecified; R19.7 Diarrhea, unspecified
CPT/HCPCS: 36415; 80076; 86788; 86789; 87040

== ENCOUNTER → 2025-06-25 | Outpatient (CLI) | payer MEDICARE, SELFPAY ==
--- NOTE | 2025-06-25 09:51 | US_ITS ---
PROCEDURE: ABDOMEN LIMITED 06/25/2025 REASON FOR EXAM: MONONUCLEOSIS SYNDROME COMPARISON: None FINDINGS: Liver: Grossly normal size and echotexture. The liver measures 14.4 cm. Gallbladder: No stones, sludge, wall thickening or tenderness. Common bile duct: Normal measuring 3.4 mm . Pancreas: Normal Other: Visualized portions of the right kidney are unremarkable. No right upper quadrant ascites. US/Abdomen Limited IMPRESSION: NORMAL RIGHT UPPER QUADRANT ULTRASOUND. Reading Location: [place] [id number]
== END | disposition home or self-care (01) ==
PROVIDERS: PCP Nurse Practitioner Family; Referring Provider Internal Medicine Infectious Disease; Visit Provider Internal Medicine Infectious Disease
DX: B27.90 Infectious mononucleosis, unspecified without complication (principal); R19.7 Diarrhea, unspecified; R50.9 Fever, unspecified
CPT/HCPCS: 36415; 76705; 83630; 87177; 87209; 87493; 87506

== ENCOUNTER → 2025-06-26 | Outpatient (CLI) | payer MEDICARE, SELFPAY | END | disposition home or self-care (01) | PROVIDERS: PCP Nurse Practitioner Family; Referring Provider Internal Medicine Infectious Disease; Visit Provider Internal Medicine Infectious Disease | DX: R50.9 Fever, unspecified (principal) | CPT/HCPCS: 36415; 87040 ==

== ENCOUNTER → 2025-06-27 | Outpatient (CLI) | payer MEDICARE, SELFPAY | END | disposition home or self-care (01) | PROVIDERS: PCP Nurse Practitioner Family; Referring Provider Internal Medicine Infectious Disease; Visit Provider Internal Medicine Infectious Disease | DX: R50.9 Fever, unspecified (principal) ==

== ENCOUNTER → 2025-07-16 | Outpatient (CLI) | payer MEDICARE, SELFPAY ==
--- NOTE | 2025-07-16 13:00 | PROSBIL_PTH ---
PATIENT: MONSE WILSON LOC: LANE U#:[id number] AGE/SX: 69/M ROOM: RE07/16/[address]: Dr. Moiz Benavides MD : [id number] BED: DIS: 07/16/2025 SPEC #: [id number] RECD: 07/16/25 16:00 STATUS: GEO REAugustin #: [id number] ZION: 07/16/25 13:[address]: Moiz Benavides DEPT: SURGICAL PATHOLOGY RECD BY: Jay Rivas ENTERED: 07/17/25 09:45 SP TYPE: PROST BX MARQUEZ DR: Paris Conley, LEAF STAMPER-C Tissues: A - PROSTATE RIGHT B - PROSTATE RIGHT C - PROSTATE RIGHT D - PROSTATE LEFT E - PROSTATE LEFT F - PROSTATE LEFT Procedures: PROSTATE BX HEADER OPERATION: Prostate biopsy PRE-OP DIAGNOSIS: Elevated PSA TISSUE SUBMITTED: A - Right apex, B - Right mid, C - Right base, D - Left apex, E - Left mid, F - Left base MICROSCOPIC DIAGNOSIS A. Prostate, right apex, biopsy: - Benign prostate tissue. B. Prostate, right mid, biopsy: - Adenocarcinoma [place] 3+3=6 involving two of two tissue fragments, 10% of the specimen. C. Prostate, right base, biopsy: - Benign prostate tissue. D. Prostate, left apex, biopsy: - Benign prostate tissue. E. Prostate, left mid, biopsy: - Focal atypical small acinar proliferation, suspicious for adenocarcinoma. F. Prostate, left base, biopsy: - Benign prostate tissue. MICROSCOPIC DESCRIPTION Slides are reviewed. GROSS DESCRIPTION Received in 6 formalin containers labeled with the patient's name and date of . Designated as: A. RA is a bañuelos tissue core, 1.7 cm in length by 0.1 cm in diameter. Entirely submitted in 1 cassette. B. RM is a fragmented bañuelos tissue core, 1.5 cm in length by 0.1 cm in diameter. Entirely submitted in 1 cassette. C. RB is a bañuelos tissue core, 1.8 cm in length by 0.1 cm in diameter. Entirely submitted in 1 cassette. D. LA is a bañuelos tissue core, 1.5 cm in length by 0.1 cm in diameter. Entirely submitted in 1 cassette. E. LM is a bañuelos tissue core, 2.0 cm in length by 0.1 cm in diameter. Entirely submitted in 1 cassette. F. LB is a bañuelos tissue core, 1.1 cm in length by 0.1 cm in diameter. Entirely submitted in 1 cassette. NV 07/17/2025 CPT:21171j3
== END | disposition home or self-care (01) ==
PROVIDERS: PCP Nurse Practitioner Family; Referring Provider Urology; Visit Provider Urology
DX: R97.20 Elevated prostate specific antigen [PSA] (principal)
CPT/HCPCS: 88305; G0416

== ENCOUNTER → 2025-10-08 | Outpatient (CLI) | payer MEDICARE, SELFPAY ==
[2025-10-08 13:07] LABS: PSA,Total- Diagnostic 10.40 ng/mL (0.00-4.00)
== END | disposition home or self-care (01) ==
LOC: MTLAB 10:29
PROVIDERS: PCP Nurse Practitioner Family; Referring Provider Urology; Visit Provider Urology
DX: C61 Malignant neoplasm of prostate (principal)
CPT/HCPCS: 36415; 84153